=== PATIENT | male | born 1970 | race Caucasian/White ===

== ENCOUNTER → 2019-04-17 | Outpatient (CLI) | payer BC ==
[2019-04-17 15:16] LABS: FREE T4 (FREE THYROXINE) 0.93 NG/DL (0.70-1.48)
== END ==
LOC: LAB FS 07:18
PROVIDERS: ATTEND Pediatrics
DX: E03.8 Other specified hypothyroidism (principal); E06.3 Autoimmune thyroiditis
CPT/HCPCS: 36415; 84439; 84443

== ENCOUNTER 2019-07-11 06:44 | Day surgery (SDC) | payer BC ==
[2019-07-11] VITALS (9 sets, daily range): BP systolic 106–151; BP diastolic 67–97
[~2019-07-11 06:44] MED LIST: LEVO50TA6 PO; LISI-556 PO
[2019-07-11] MEDS ORDERED: NS IV 500 ML 500 ML ONE (07:13)
[2019-07-11] MEDS ORDERED: MIDAZOLAM 2 MG/2 ML (VERSED) VIAL ONE ×3 (07:36→07:37)
[2019-07-11] MEDS ORDERED: fentaNYL INJECTION 100 MCG/2 ML AMP ONE (07:37)
[2019-07-11] MEDS ORDERED: ONDANSETRON 4 MG/2 ML (SDV) Z0FRAN ONE (07:57)
--- NOTE | 2019-07-11 08:14 | Endoscopy Procedure Report ---
Colonoscopy Procedure Performed: Colonoscopy Pre-Operative Diagnosis: screen Post-Operative Diagnosis: none Dairy Clerk: None. Indications for Procedure: screen Procedure Details: Informed consent was obtained, the risks, benefits and alternatives to the procedure were explained to the patient. The Mikel Gonzales, a 49 yr old male, was brought to to surgery area, sedated with 6 mg of Versed and 100 ug of fentanyl. He was placed in the left lateral decubitus position. Under direct visualization the scope was passed easily to the cecum. Cecum is identified by landmarks. Scope was carefully withdrawn. Findings: Ascending Colon: none Transverse Colon: none Descending/Sigmoid: none Rectum: none Estimated Blood Loss: 0 mL Specimens: none Complications: None; patient tolerated the procedure well. Final Diagnosis: essnetially normal colonoscopy CHARLES LAURA MD Jul 11, 2019 08:14
[2019-07-11] MEDS ORDERED: NS IV 500 ML 500 ML IV PRN (08:25)
[2019-07-11] MEDS ORDERED: MIDAZOLAM 2 MG/2 ML (VERSED) VIAL IVP ONE (08:30)
[2019-07-11] MEDS ORDERED: fentaNYL INJECTION 100 MCG/2 ML AMP IVP ONE (08:30)
[2019-07-11] MEDS ORDERED: ONDANSETRON 4 MG/2 ML (SDV) Z0FRAN IVP ONE (08:45)
== END 2019-07-11 09:20 | disposition home or self-care (01) ==
LOC: ENDO 06:44
PROVIDERS: ATTEND Pediatrics
DX: Z12.11 Encounter for screening for malignant neoplasm of colon (principal); Z79.899 Other long term (current) drug therapy

== ENCOUNTER → 2022-11-08 | Outpatient (CLI) | payer BC, OTHER ==
[~2022-11-08] MED LIST changes: -LISI-556 PO; +LISI5TAB20 PO
--- NOTE | 2022-11-08 08:22 | Diagnostic Imaging Report ---
PROCEDURE: US Gallbladder. INDICATION: EPIGASTRIC ABDOMINAL PAIN TECHNIQUE: Multiple grayscale sonographic images were obtained of the right upper quadrant of the abdomen. CORRELATION STUDY: None FINDINGS: LIVER: There is uniform echotexture within the visualized portions of the liver. The main portal vein is patent and with normal direction of flow. Liver length 15.1 cm. GALLBLADDER: The gallbladder demonstrates no definitive shadowing gallstones, abnormal gallbladder wall thickening or pericholecystic fluid. COMMON BILE DUCT: Nondilated at 0.4 cm. AORTA/IVC: Unremarkable and nonaneurysmal. PANCREAS: Obscured by overlying bowel gas. RIGHT KIDNEY: 10.3 x 5.9 x 6.8 cm. No hydronephrosis. OTHER: No significant right upper quadrant ascites. IMPRESSION: 1. Negative appearing right upper quadrant abdominal ultrasound. Dictated by: Dictated on workstation # [id number]
== END ==
LOC: RAD FS 07:55
PROVIDERS: ATTEND Family Medicine
DX: R10.13 Epigastric pain (principal)
CPT/HCPCS: 76705

== ENCOUNTER → 2022-11-18 | Outpatient (CLI) | payer OTHER ==
--- NOTE | 2022-11-18 13:02 | Diagnostic Imaging Report ---
INDICATION: Epigastric pain. TECHNIQUE: Patient was administered 5.4 mCi technetium-99m Choletec intravenously, and imaging over the abdomen was performed. At 1-hour patient ingested 8 ounces of Ensure, and a gallbladder ejection fraction was calculated. FINDINGS: There is homogeneous uptake of activity by the liver with prompt excretion of activity into the common duct and gallbladder. There is normal passage of activity into the small bowel. There is some mild uptake in the stomach consistent with bile reflux. Gallbladder ejection fraction is normal at 38%. IMPRESSION: 1. Patent common bile duct and cystic duct. 2. Normal gallbladder ejection fraction of 38%. 3. Mild gastric bile reflux. Dictated by: Dictated on workstation # [id number]
== END ==
LOC: CARD 09:31
PROVIDERS: ATTEND Family Medicine
DX: R10.13 Epigastric pain (principal)
CPT/HCPCS: 78227; A9537